=== PATIENT | female | born 1970 | race Caucasian/White ===

== ENCOUNTER 2018-03-28 23:02 | Emergency (ER) | payer OTHER ==
[2018-03-28] MEDS ORDERED: 0.9 % SODIUM CHLORIDE 1,000 ML IV ONE (23:24)
--- NOTE | 2018-03-28 23:28 | ED Physician Documentation ---
General Adult - HISTORIAN Historian: patient, spouse - HPI Stated Complaint: Unable to urinate s/p hemorrhoidectomy Chief Complaint: General Adult Additional Information: Patient presents to ED unable to urinate after outpatient hemorrhoidectomy surgery. Patient states she urinated after the surgery one time but has not urinated since that time, which was about 1500 today. She states she tried to urinate by bearing down and had pain and bleeding at the surgical site. Her surgeon is Dr. Rodriguez at the [facility] and she called the mobile application developer surgeon and was told they could not help her. So she came to the ED here. Blood pressure on arrival is 96/47. Onset: hours (4) Timing: still present Severity: moderate - ROS CONST: no problems EYES/ENT: none CVS/RESP: none GI/: nausea. denies: abdominal pain MS/SKIN/LYMPH: none NEURO/PSYCH: denies: headache - PAST HX Past History: none Other History: none Surgeries/Procedures: other (hemorrhoidectomy) Allergies/Adverse Reactions: Allergies Allergy/AdvReac Type Severity Reaction Status Date / Time No Known Allergies Allergy Unverified 03/28/18 23:16 Home Medications: Ambulatory Orders Medication Instructions Recorded Acetaminophen [Tylenol] 325 mg PO Q4 PRN 03/28/18 Hydrochlorothiazide 12.5 mg PO DAILY 03/28/18 Levothyroxine Sodium [Synthroid] 50 mcg PO DAILY 03/28/18 Lisinopril 20 mg PO DAILY 03/28/18 oxyCODONE HCL [Percolone] 5 - 10 mg PO Q6 PRN 03/28/18 Ondansetron [Zofran Odt] 4 mg PO TID #30 tab.rapdis 03/29/18 - SOCIAL HX Smoking History: non-smoker Alcohol Use: none Drug Use: none - FAMILY HX Family History: No - VITAL SIGNS Vital Signs: Vital Signs Temp Pulse Resp BP Pulse Ox 98.8 F 83 16 96/47 98 03/28/18 23:04 03/28/18 23:04 03/28/18 23:04 03/28/18 23:04 03/28/18 23:04 - REVIEWED ASSESSMENTS Nursing Assessment Reviewed: Yes Vitals Reviewed: Yes Progress - Progress Progress: 033 Unable to obtain IV access after 4 attempts. Blood pressure now 103/75. Patient requests to be discharged home. Zofran given for nausea. Rx escribed to pharmacy. ED Results Lab/Radiology - Orders Orders: ED Orders Category Date Time Status Place IV Lock 1T Care 03/28/18 23:23 Ordered Urinary catheterization 1T Care 03/28/18 23:23 Ordered NORMAL SALINE @ 1000 MLS/HR ( 1000ml BOLUS) Med 03/28/18 23:24 Ordered 0.9 % Sodium Chloride [Normal Saline] 1,000 ml IV Q1H General Adult Physical Exam - PHYSICAL EXAM GENERAL APPEARANCE: no distress EENT: TUNDE NECK: normal inspection, supple RESPIRATORY: no resp distress, breath sounds normal CVS: reg rate & rhythm, heart sounds normal ABDOMEN: soft, normal bowel sounds, non-tender RECTAL: deferred BACK: no CVA tenderness SKIN: warm/dry, normal color EXTREMITIES: non-tender, no edema NEURO: oriented X3, motor nml Discharge Clincal Impression: Inability to urinate Prescriptions: Ondansetron [Zofran Odt] 4 mg PO TID #30 tab.rapdis Referrals: Allyssa Hong MD [Primary Care Provider] - 2 Days Additional Instructions: 1. Remove Lewis catheter in 24 hours 2. Call the Surgeon in the A.M. 3. Return to ED with fever >101.0, increased pain or increased bleeding. Condition: Stable Disposition: 01 HOME, SELF-CARE Decision to Admit: NO Date of Decison to Admit: 03/29/18 Decision Time: 00:28
[2018-03-29] MEDS ORDERED: ONDANSETRON HCL 4 MG TAB.RAPDIS PO ONE (00:24)
[2018-03-29 00:58] VITALS: BP 103/75
== END 2018-03-29 00:40 | disposition home or self-care (01) ==
LOC: ED 23:02
DX: R30.0 Dysuria (principal); Z98.890 Other specified postprocedural states
CPT/HCPCS: 51702; 99281; 99282; A9270; S1016